=== PATIENT | female | born 1970 | race Caucasian/White ===

== ENCOUNTER 2020-10-01 04:51 | Day surgery (SDC) | payer OTHER ==
[2020-09-30 10:07] VITALS: BMI 22.8
[2020-10-01 10:19] VITALS: TEMP 98.1
[2020-10-01 10:56] LABS: ALBUMIN 3.8 g/dl (3.4-5.0)
[2020-10-01 10:59] LABS: BILIRUBIN,DIRECT 0.2 mg/dL (0.0-0.2)
[2020-10-01 11:01] VITALS: BP 109/72; PULSE 52
[2020-10-01 11:01] LABS: BILIRUBIN,TOTAL 0.9 mg/dL (0.2-1)
[2020-10-01 11:02] LABS: TOT PROT 6.7 g/dl (6.4-8.2)
== END 2020-10-01 11:01 | disposition home or self-care (01) ==
LOC: JASU-ENDO 04:51
PROVIDERS: ATTEND Internal Medicine Gastroenterology
PROC: 0DBH8ZX Excision of Cecum, Via Natural or Artificial Opening Endoscopic, Diagnostic (ICD-10-PCS; principal; 2020-10-01 10:30)
DX: Z12.11 Encounter for screening for malignant neoplasm of colon (principal); D64.9 Anemia, unspecified; D12.0 Benign neoplasm of cecum; K64.8 Other hemorrhoids
CPT/HCPCS: 36415; 80076; 82977; 88305-TC